=== PATIENT | male | born 1965 | race Caucasian/White ===

== ENCOUNTER 2018-08-24 18:52 | Emergency (ER) | payer BC, OTHER ==
[2018-08-24] MEDS: KETOROLAC 30 MG INJ IM (21:00)
[2018-08-24] MEDS: LOPERAMIDE 2 MG CAP PO (21:00)
[2018-08-24] MEDS: HYDROCODONE/APAP (5/325) TAB PO (21:00)
== END 2018-08-24 22:45 | disposition home or self-care (01) ==
LOC: FTE 22:45
DX: M54.5 Low back pain (principal); I10 Essential (primary) hypertension
CPT/HCPCS: 71046; 72100; 96372; 99284-25